=== PATIENT | male | born 1935 | race Caucasian/White ===

== ENCOUNTER 2019-08-09 06:47 | Day surgery (SDC) | payer OTHER ==
[~2019-08-09] VITALS: Ht 177.8 cm; Wt 59.0 kg
[2019-08-09] MEDS ORDERED: CLINDAMYCIN PHOS 600 MG/ D5W 50 ML PREMIX IV ONE (07:00)
[2019-08-09] MEDS ORDERED: POLYMYXIN 500,000/BACIT.10,000 UNITS in NS IRR 1 L IR ONE (09:07)
[2019-08-09] MEDS ORDERED: CLINDAMYCIN 600 mg/50mL D5W 50 ML IV ONE (09:27)
[2019-08-09] MEDS ORDERED: BUPIVACAINE /DEX PF 0.75% SPINAL 2 ML AMP INJ ONE (09:30)
[2019-08-09] MEDS ORDERED: MIDAZOLAM HCL 5 MG/5 ML VIAL IVP ONE (09:30)
[2019-08-09] MEDS ORDERED: PROPOFOL 200MG/ 20ML VIAL (DIPRIVAN) IV ONE (09:30)
[2019-08-09] MEDS ORDERED: LR 1,000 ML IV.SOLN IV ONE (09:30)
[2019-08-09] MEDS ORDERED: BUPIVACAINE /PF 0.25% 30 ML VIAL INJ ONE (09:30)
[2019-08-09] MEDS ORDERED: BUPIVACAINE LIPOSOME/PF 266 MG/20 ML VIAL INFIL ONE (10:27)
[2019-08-09] MEDS ORDERED: LR 1,000 ML IV SCH (10:49)
[2019-08-09] MEDS ORDERED: ONDANSETRON HCL 4 MG/2 ML VIAL IVP PRN (11:00)
[2019-08-09] MEDS ORDERED: MORPHINE 4 MG/ML INJ. SYRINGE IVP PRN ×3 (11:00)
[2019-08-09] MEDS ORDERED: MORPHINE 4 MG/ML INJ. SYRINGE ONE ×3 (12:13→14:49)
[2019-08-09] MEDS ORDERED: HYDROcodone/ACETAMIN 5-325 MG TAB (NORCO/ VICODIN) PO PRN (13:00)
[2019-08-09] MEDS ORDERED: HYDROcodone/ACETAMIN 5-325 MG TAB (NORCO/ VICODIN) ONE (13:16)
[2019-08-09] MEDS ORDERED: MORPHINE 2 MG/ML INJ. SYRINGE IVP ONE (14:30)
[2019-08-09] MEDS ORDERED: TAMSULOSIN HCL 0.4 MG CAP PO ONE (14:45)
[2019-08-09 15:12] VITALS: BP_SYST 148
[2019-08-09] MEDS ORDERED: METOCLOPRAMIDE HCL 10 MG/2 ML VIAL IVP SCH (18:00)
[2019-08-10] MEDS ORDERED: TAMSULOSIN HCL 0.4 MG CAP PO SCH (09:00)
== END 2019-08-09 15:30 | disposition home or self-care (01) ==
LOC: SMU 06:47 → SDS 06:47
PROVIDERS: ATTEND Surgery
DX: K40.90 Unilateral inguinal hernia, without obstruction or gangrene, not specified as recurrent (principal); Z90.49 Acquired absence of other specified parts of digestive tract; Z98.890 Other specified postprocedural states; Z79.899 Other long term (current) drug therapy; Z88.0 Allergy status to penicillin; J44.9 Chronic obstructive pulmonary disease, unspecified; Z86.73 Personal history of transient ischemic attack (TIA), and cerebral infarction without residual deficits; M19.90 Unspecified osteoarthritis, unspecified site; D64.9 Anemia, unspecified; N18.3 Chronic kidney disease, stage 3 (moderate); D17.6 Benign lipomatous neoplasm of spermatic cord; E46 Unspecified protein-calorie malnutrition; D63.1 Anemia in chronic kidney disease
CPT/HCPCS: 49505; 88302; C1781; C9290; J2250; J2270; J2704; J3490 ×3; J7120